=== PATIENT | male | born 1965 ===

== ENCOUNTER 2017-06-05 19:48 | Emergency (ER) | payer SELFPAY ==
[2017-06-05 19:53] VITALS: BP 129/83; PULSE 64; RESP 16; TEMP 97.7; O2SAT 100
[2017-06-05] MEDS ORDERED: Fluorescein 1 mg Ophthalmic Strip ONE (20:01)
--- NOTE | 2017-06-05 20:07 | ED PDOC ---
HPI: Eye Injury/Pain Time Seen by Provider: 06/05/17 19:54 Chief Complaint (Nursing): Eye Problem Chief Complaint (Provider): Eye Problem History Per: Patient History/Exam Limitations: no limitations Onset/Duration Of Symptoms: Days Current Symptoms Are (Timing): Still Present Additional Complaint(s): 51 y/o male presents to the emergency department with a complaint of a right eye pain described as feeling something is stuck inside since yesterday, 2016. Reports pain is on and off. States he always wears glasses and does not use contacts. Denies any further medical complaints. Past Medical History Reviewed: Historical Data, Nursing Documentation, Vital Signs Vital Signs: Last Vital Signs Temp 97.7 F 06/05/17 19:52 Pulse 64 06/05/17 19:52 Resp 16 06/05/17 19:52 BP 129/83 06/05/17 19:52 Pulse Ox 100 06/05/17 19:52 - Medical History PMH: No Chronic Diseases - Surgical History Surgical History: No Surg Hx - Family History Family History: States: Unknown Family Hx - Immunization History Hx Tetanus Toxoid Vaccination: No Hx Influenza Vaccination: No Hx Pneumococcal Vaccination: No - Home Medications Home Medications: Ambulatory Orders Medication Instructions Recorded Hydrocortisone 2.5% 30 gm EXT BID #1 oint 04/23/13 Prednisone 20 mg PO TID #15 tab 04/23/13 - Allergies Allergies/Adverse Reactions: Allergies Allergy/AdvReac Type Severity Reaction Status Date / Time No Known Allergies Allergy Unverified 04/23/13 19:58 Review of Systems ROS Statement: Except As Marked, All Systems Reviewed And Found Negative Eyes: Positive for: Pain (Right), Redness Physical Exam - Reviewed Nursing Documentation Reviewed: Yes Vital Signs Reviewed: Yes - Physical Exam Appears: Positive for: Non-toxic, No Acute Distress Head Exam: Positive for: ATRAUMATIC, NORMAL INSPECTION, NORMOCEPHALIC Eye Exam: Positive for: Conjunctival injection (Mild). Negative for: Normal appearance Neck: Positive for: Normal, Supple Neurologic/Psych: Positive for: Alert, Oriented (x3) - ECG O2 Sat by Pulse Oximetry: 100 (RA) Pulse Ox Interpretation: Normal Medical Decision Making Medical Decision Making: Time: 1944 Initial impression: Eye pain Initial plan: --Fluorescence Eye Stain Test --Reevaluation Time: 20:07 --Fluorescence uptake over the iris at about 3 o'clock of the right eye. --Ready for d/c with eye drops. Scribe Attestation: Documented by Katalina Sterling, acting as a scribe for Jie Yates PA-C Provider Scribe Attestation: All medical record entries made by the Scribe were at my direction and personally dictated by me. I have reviewed the chart and agree that the record accurately reflects my personal performance of the history, physical exam, medical decision making, and the department course for this patient. I have also personally directed, reviewed, and agree with the discharge instructions and disposition. Disposition - Clinical Impression Clinical Impression: Corneal abrasion - Patient ED Disposition Is Patient to be Admitted: No - Disposition Disposition: Routine/Home Disposition Time: 20:50 Condition: STABLE Instructions: Corneal Abrasion (ED) Forms: [employer] (Danish)
[2017-06-05] MEDS ORDERED: Erythromycin 0.5% Ophth Oint 1 APPLIC/3.5 G OU ONE (20:26)
[2017-06-05] MEDS ORDERED: Gentamicin Sulfate Ophth OINT OU STA (20:40)
[2017-06-05] MEDS ORDERED: Gentamicin Sulfate 0.3% Ophth SOLN ONE (20:42)
== END 2017-06-05 22:12 | disposition home or self-care (01) ==
LOC: H.ER 19:48
DX: S05.00XA Injury of conjunctiva and corneal abrasion without foreign body, unspecified eye, initial encounter (principal); W22.8XXA Striking against or struck by other objects, initial encounter; Y92.89 Other specified places as the place of occurrence of the external cause